=== PATIENT | female | born 2000 | race Hispanic/Latino ===

== ENCOUNTER 2022-02-13 09:44 | Emergency (ER) | payer SELFPAY ==
[2022-02-13] MEDS ORDERED: EPINEPHrine 1 MG/ML AMP ONE (09:57)
[2022-02-13] MEDS ORDERED: Dexamethasone 10 MG/ML VIAL ONE (10:24)
[2022-02-13] MEDS ORDERED: diphenhydrAMINE 50 MG/ML VIAL ONE (10:24)
== END 2022-02-13 12:03 | disposition home or self-care (01) ==
LOC: CSHERS 09:44
DX: J45.909 Unspecified asthma, uncomplicated (principal)
CPT/HCPCS: 96372; 96374; 96375; J0171; J1100; J1200; J7620